=== PATIENT | female | born 2000 | race Caucasian/White ===

== ENCOUNTER 2021-03-17 17:49 | Emergency (ER) | payer OTHER ==
[~2021-03-17] VITALS: Ht 167.6 cm; Wt 68.0 kg
[2021-03-17] MEDS ORDERED: ALBENDAZOLE200 MG PO (18:15)
== END 2021-03-17 18:38 | disposition home or self-care (01) ==
LOC: EMR PED 17:49
DX: B76.9 Hookworm disease, unspecified (principal)

== ENCOUNTER 2021-05-22 11:03 | Emergency (ER) | payer OTHER ==
[~2021-05-22] VITALS: Ht 167.6 cm; Wt 69.9 kg
[~2021-05-22 11:03] MED LIST: ALBENDAZOLE200 MG PO
== END 2021-05-22 12:57 | disposition home or self-care (01) ==
LOC: EMR PED 11:03 → ER 11:03 → EMR PED 11:20
DX: J02.9 Acute pharyngitis, unspecified (principal)